=== PATIENT | male | born 1930 ===

== ENCOUNTER 2016-05-23 18:24 | Emergency (ER) | payer MEDICARE ==
[2016-05-23 18:24] VITALS: BMI 25.8
[2016-05-23 19:30] LABS: BASO % 0.3 % (0.0-2.0); EOS # 1.2 K/uL (0.0-0.7); EOS % 22.1 % (0.0-4.0); LYMPH # 1.4 K/uL (1.0-4.3); LYMPH % 25.9 % (20.0-40.0); MEAN CELL VOLUME 101.1 fl (80.0-94.0); MEAN CORPUSCULAR HEMOGLOBIN 32.7 pg (27.0-31.0); MEAN CORPUSCULAR HGB CONC 32.4 g/dL (33.0-37.0); MEAN PLATELET VOLUME 8.1 fl (7.2-11.7); MONO # 0.3 K/uL (0.0-0.8); MONO % 6.1 % (0.0-10.0); NEUT # 2.4 K/uL (1.8-7.0); NEUT % 45.6 % (50.0-75.0); NRBC % 0.1 % (0.0-0.0); PLATELET COUNT 147 K/uL (130-400); RED CELL DISTRIBUTION WIDTH 14.5 % (11.5-14.5); WHITE BLOOD COUNT 5.3 K/uL (4.8-10.8)
--- NOTE | 2016-05-23 19:33 | ED PDOC ---
HPI: Altered Mental Status Time Seen by Provider: 05/23/16 19:04 Chief Complaint (Nursing): Altered Mental Status Chief Complaint (Provider): altered mental status History Per: EMS, Family (son) History/Exam Limitations: Clinical Condition Onset Of Symptoms: <3 Hours Current Symptoms Are (Timing): Still Present Associated Symptoms: denies: Fever, Chills, Chest Pain, Headache, Other ( extremity pain) Additional Complaint(s): 85 year old male with a pertinent medical history of dementia brought into ED by EMS because he was found wandering on the streets just prior to arrival. His son reports that his father was out getting groceries, but he was taking longer than expected and doesn't know why EMS took him to the hospital, but thinks it' s because his father was stumbling. Patient denies having any medical complaints including chest pain, headache, shortness of breath, and extremity pain. He also says that he remembers everything. PMD: Patient does not recall. NIHSS Stroke Scale - Date/Time Evaluation Performed Date Performed: 05/23/16 Time Performed: 19:15 - How Severe is the Stroke Level of Consciousness: 0=Alert LOC to Questions: 0=Both comments correct LOC to commands: 0=Obeys both correctly Best Gaze: 0=Normal Visual: 0=No visual loss Facial: 0=Normal Motor Arm - Right: 0=No drift Motor Leg - Left: 0=No drift Motor Leg - Right: 0=No drift Limb Ataxia: 0=Absent Sensory: 0=Normal Best Language: 0=No aphasia Dysarthia: 0=Normal articulation Extinction & Inattention (Neglect): 0=Normal, no object Past Medical History Reviewed: Historical Data, Nursing Documentation, Vital Signs Vital Signs: Last Vital Signs Temp 97.0 F L 05/23/16 18:27 Pulse 77 05/23/16 18:27 Resp 16 05/23/16 18:27 BP 159/93 H 05/23/16 18:27 Pulse Ox 99 05/23/16 18:27 - Medical History PMH: Dementia Denies: Alzheimer's Disease, Anemia, Anxiety, Arthritis, Asthma, Atrial Fibrillation, Bipolar Disorder, Bronchitis, CAD, Cardia Arrhythmia, CHF, COPD, Crohn's Disease, Depression, Diabetes, Diverticulitis, Emphysema, Fractures, Gastritis, Gall Bladder Disease, HIV, HTN, Hypercholesterolemia, Hyperthyroidism , Hypothyroidism, Kidney Stones, Migraine, Mitral Valve Prolapse, Multiple Sclerosis, Osteoporosis, Pancreatitis, Paranoia, Parkinson's Disease, Peripheral Edema, Pneumonia, Post Traumatic Stress Disorder, Pulmonary Embolism , Chronic Kidney Disease, Rheumatoid Arthritis, Schizophrenia, Seizures, Sickle Cell Disease, Sexually Transmitted Disease, Sleep Apnea, TIA - Surgical History Surgical History: Denies: Appendectomy, CABG, Carotid Endarterectomy, Cholecystectomy, Coronary Stent, Pacemaker, Tonsillectomy - Family History Family History: States: Unknown Family Hx - Social History Alcohol: None - Home Medications Home Medications: Ambulatory Orders Medication Instructions Recorded Memantine [Namenda] 10 mg PO DAILY 12/05/15 Polyethylene Glycol 3350 [Miralax] 17 gm PO DAILY PRN 12/05/15 Aspirin [Ecotrin] 81 mg PO DAILY #0 tabec 12/06/15 - Allergies Allergies/Adverse Reactions: Allergies Allergy/AdvReac Type Severity Reaction Status Date / Time No Known Allergies Allergy Verified 05/23/16 18:27 Review of Systems Review Of Systems: ROS cannot be obtained secondary to pt's inabilty to answer questions. (due to patient's AMS) Physical Exam - Reviewed Nursing Documentation Reviewed: Yes Vital Signs Reviewed: Yes - Physical Exam Appears: Positive for: Well, Non-toxic, No Acute Distress Head Exam: Positive for: ATRAUMATIC, NORMOCEPHALIC Skin: Positive for: Warm, Dry, Pallor Eye Exam: Positive for: Normal appearance ENT: Positive for: Normal ENT Inspection Cardiovascular/Chest: Positive for: Regular Rate, Rhythm, Chest Non Tender Respiratory: Positive for: Normal Breath Sounds. Negative for: Respiratory Distress Neurologic/Psych: Positive for: Alert, Oriented (x2) - Laboratory Results Result Diagrams: 05/23/16 19:27 05/23/16 19:27 - ECG O2 Sat by Pulse Oximetry: 99 (RA) Pulse Ox Interpretation: Normal Medical Decision Making Medical Decision Makin:04 Initial impression: 85 year old male with dementia Initial plan: * CT head w/o contrast * BMP * CBC * XRay portable chest * urinalysis * reevaluation 1030PM: Pt. doing well, accompanied by son, will d/c home. CT neg. Scribe Attestation: Documented by Tete Berumen, acting as a scribe for Wilmer Cat MD. Provider Scribe Attestation: All medical record entries made by the Scribe were at my direction and personally dictated by me. I have reviewed the chart and agree that the record accurately reflects my personal performance of the history, physical exam, medical decision making, and the department course for this patient. I have also personally directed, reviewed, and agree with the discharge instructions and disposition. Disposition - Clinical Impression Clinical Impression: Dementia - Disposition Referrals: Saulo Arshad MD [Family Provider] - Disposition: Routine/Home Disposition Time: 22:30 Condition: STABLE Instructions: Dementia (ED) Print Language: [place]
[2016-05-23 19:40] LABS: BLOOD UREA NITROGEN 23 mg/dl (9-20); CALCIUM 8.9 mg/dL (8.4-10.2); CARBON DIOXIDE 29 mmol/L (22-30); CHLORIDE 102 mmol/L (98-107); GFR AFRICAN-AMERICAN > 60; GLUCOSE,RANDOM 96 mg/dL (75-110); POTASSIUM 4.2 MMOL/L (3.6-5.0); SODIUM 137 mmol/l (132-148)
[2016-05-23 20:38] LABS: RBC URINE 14 /hpf (0-3); URINE BACTERIA FEW (<OCC); URINE BILIRUBIN NEGATIVE (NEGATIVE); URINE BLOOD MODERATE (NEGATIVE); URINE COLOR YELLOW (YELLOW); URINE GLUCOSE (UA) NEG (Normal); URINE KETONE NEGATIVE (NEGATIVE); URINE LEUKOCYTE ESTERASE NEG Leu/uL (Negative); URINE PROTEIN NEGATIVE (NEGATIVE); URINE UROBILINOGEN 0.2-1.0 mg/dL (0.2-1.0); WBC URINE 1 /hpf (0-5)
[2016-05-23 21:28] LABS: EOSINOPHIL 19 % (0-7); NEUTROPHIL 44 % (42-75); TOTAL CELLS COUNTED 100
[2016-05-23 21:34] VITALS: BP 140/77; PULSE 58; RESP 18; TEMP 97.9
[2016-05-23 23:28] VITALS: O2SAT 99
--- NOTE | 2016-05-24 08:51 | CT ---
PROCEDURE: CT HEAD WITHOUT CONTRAST. HISTORY: found wandering outside home COMPARISON: None available. TECHNIQUE: Axial computed tomography images were obtained through the head/brain without intravenous contrast. Radiation dose: Total exam DLP = 893.40 mGy-cm. FINDINGS: HEMORRHAGE: No intracranial hemorrhage. BRAIN: No mass effect or edema. Moderate age-appropriate diffuse atrophy. Moderate periventricular white matter lucency with patchy and confluent deep and subcortical white matter lucency, consistent with age-related microvascular ischemic change. No evidence of acute infarct. VENTRICLES: Unremarkable. No hydrocephalus. CALVARIUM: Unremarkable. PARANASAL SINUSES: Unremarkable as visualized. No significant inflammatory changes. MASTOID AIR CELLS: Unremarkable as visualized. No inflammatory changes. OTHER FINDINGS: None. IMPRESSION: No intracranial mass, hemorrhage or evidence of acute infarct. Age related atrophy and chronic white matter ischemic change. Preliminary interpretation of this examination was reported by [facility] at 9:43 p.m. on 05/23/2016. There is concurrence of this report with the preliminary interpretation.
--- NOTE | 2016-05-24 13:20 | RAD ---
HISTORY: r/o PNA COMPARISON: I mildly are all HIDA age she organic single live fairly radiata upper lid edema and thenar atrophy extending at 9 well from [place] [address] pachymeningeal bowel upper No prior. FINDINGS: LUNGS: The lungs are well inflated and clear. PLEURA: No significant pleural effusion identified, no pneumothorax apparent. CARDIOVASCULAR: The heart is normal in size. Atherosclerotic aortic arch calcifications are present. OSSEOUS STRUCTURES: No significant abnormalities. VISUALIZED UPPER ABDOMEN: Normal. OTHER FINDINGS: None. IMPRESSION: No active pulmonary disease.
== END 2016-05-23 21:50 | disposition home or self-care (01) ==
LOC: H.ER 18:24
DX: F03.90 Unspecified dementia, unspecified severity, without behavioral disturbance, psychotic disturbance, mood disturbance, and anxiety (principal)

== ENCOUNTER 2016-07-23 13:22 | Emergency (ER) | payer MEDICARE ==
[2016-07-23 13:22] VITALS: BMI 25.8
[2016-07-23 13:33] VITALS: BP 145/92; PULSE 76; RESP 16; TEMP 97.8; O2SAT 99
[2016-07-23] MEDS ORDERED: Iohexol 240 (50 ml) PO ONE (13:53)
[2016-07-23] MEDS ORDERED: Iohexol 240 (50 ml) ONE (13:54)
[2016-07-23 14:37] LABS: BASO % 0.2 % (0.0-2.0); EOS % 11.9 % (0.0-4.0); HEMATOCRIT 37.7 % (35.0-51.0); LYMPH # 0.3 K/uL (1.0-4.3); LYMPH % 3.1 % (20.0-40.0); MEAN CELL VOLUME 100.4 fl (80.0-94.0); MEAN CORPUSCULAR HEMOGLOBIN 33.7 pg (27.0-31.0); MEAN CORPUSCULAR HGB CONC 33.6 g/dL (33.0-37.0); MEAN PLATELET VOLUME 8.3 fl (7.2-11.7); MONO # 0.2 K/uL (0.0-0.8); MONO % 2.7 % (0.0-10.0); NEUT # 6.7 K/uL (1.8-7.0); NEUT % 82.1 % (50.0-75.0); NRBC % 0.1 % (0.0-0.0); PLATELET COUNT 153 K/uL (130-400); RED CELL DISTRIBUTION WIDTH 14.1 % (11.5-14.5); WHITE BLOOD COUNT 8.1 K/uL (4.8-10.8)
[2016-07-23 14:42] LABS: ALB/GLOB RATIO 1.3 (1.0-2.1); ALKALINE PHOSPHATASE 69 U/L (38-126); ALT/SGPT 27 U/L (21-72); AMYLASE 157 U/L (30-110); AST/SGOT 36 U/L (17-59); BILIRUBIN,TOTAL 0.6 mg/dl (0.2-1.3); BLOOD UREA NITROGEN 27 mg/dl (9-20); CALCIUM 8.9 mg/dL (8.4-10.2); CARBON DIOXIDE 28 mmol/L (22-30); CHLORIDE 101 mmol/L (98-107); GFR AFRICAN-AMERICAN > 60; GLUCOSE,RANDOM 98 mg/dL (75-110); LIPASE 208 U/L (23-300); SODIUM 138 mmol/l (132-148); TOTAL PROTEIN 7.9 G/DL (6.3-8.2)
[2016-07-23 15:44] LABS: EOSINOPHIL 8 % (0-7); NEUTROPHIL 81 % (42-75); TOTAL CELLS COUNTED 100
[2016-07-23 16:26] LABS: RBC URINE 15 /hpf (0-3); URINE BACTERIA RARE (<OCC); URINE BILIRUBIN NEGATIVE (NEGATIVE); URINE BLOOD MODERATE (NEGATIVE); URINE COLOR YELLOW (YELLOW); URINE GLUCOSE (UA) NEG (Normal); URINE KETONE TRACE mg/dL (NEGATIVE); URINE LEUKOCYTE ESTERASE NEG Leu/uL (Negative); URINE PROTEIN NEGATIVE (NEGATIVE); URINE UROBILINOGEN 0.2-1.0 mg/dL (0.2-1.0); WBC URINE 1 /hpf (0-5)
[2016-07-23] MEDS ORDERED: Iohexol 300 100 ML IJ ONE (17:11)
[2016-07-23] MEDS ORDERED: Sodium Chloride 0.9% 50 ML IV ONE (17:11)
--- NOTE | 2016-07-23 18:19 | CT ---
PROCEDURE: CT Abdomen and Pelvis with oral and IV contrast. HISTORY: diffuse abd pain r/o sbo COMPARISON: None available. TECHNIQUE: Contiguous axial images of the abdomen and pelvis. Oral and IV contrast was administered. Coronal and Sagittal reformats generated. Contrast dose: 90 cc Omnipaque 300 Radiation dose: Total exam DLP = 333.15 mGy-cm. This CT exam was performed using one or more of the following dose reduction techniques: Automated exposure control, adjustment of the mA and/or kV according to patient size, and/or use of iterative reconstruction technique. FINDINGS: LOWER THORAX: No visible consolidation, pleural effusion, or pneumothorax. Moderate-sized hiatal hernia. LIVER: Hypoattenuation of the liver compatible with hepatic steatosis. GALLBLADDER AND BILE DUCTS: Unremarkable. PANCREAS: Unremarkable. Move that SPLEEN: Unremarkable. ADRENALS: Unremarkable. KIDNEYS AND URETERS: The kidneys enhance symmetrically. No hydronephrosis or obstructing renal calculus. BLADDER: Thick-walled urinary bladder. REPRODUCTIVE: The prostate gland measures approximately 2.7 x 4.0 cm and contains coarse calcifications. APPENDIX: The appendix appears within normal limits of caliber. No secondary signs of acute appendicitis. BOWEL: The stomach is nondistended. The bowel loops appear within normal limits of caliber without evidence of intestinal obstruction. Diverticulosis without CT evidence of acute diverticulitis. PERITONEUM: No significant free fluid. No definite free air. LYMPH NODES: No bulky lymphadenopathy identified. VASCULATURE: No aortic aneurysm. BONES: Osseous demineralization. Degenerative changes. OTHER FINDINGS: Small right greater than left inguinal hernias which contain fluid and fat on the right and fat on the left. IMPRESSION: Moderate-sized hiatal hernia. Small right greater than left inguinal hernias which contain fluid and fat on the right and fat on the left. Hepatic steatosis. Diverticulosis without CT evidence of acute diverticulitis. Thick-walled urinary bladder. Recommend correlation with urinalysis. Additional incidental findings as above.
--- NOTE | 2016-07-23 18:38 | ED PDOC ---
- Laboratory Results Result Diagrams: 07/23/16 14:27 07/23/16 14:27 - ECG O2 Sat by Pulse Oximetry: 99 - Progress ED Course And Treament: [address] Medel. Pt with abd pain pending CT. Labs unremarkable Accession No. : [id number] Patient Name / ID : ALYSSA HIGGINBOTHAM / [id number] Exam Date : 07/23/2016 17:44:09 ( Approved ) Study Comment : Sex / Age : M / 86Y Creator : Lizet Carreno MD Dictator : Lizet Carreno MD Turntable Engineer : Swim Coach : Lizet Carreno MD Approver2 : Report Date : 07/23/2016 18:18:13 My Comment : PROCEDURE: CT Abdomen and Pelvis with oral and IV contrast. HISTORY: diffuse abd pain r/o sbo COMPARISON: None available. TECHNIQUE: Contiguous axial images of the abdomen and pelvis. Oral and IV contrast was administered. Coronal and Sagittal reformats generated. Contrast dose: 90 cc Omnipaque 300 Radiation dose: Total exam DLP = 333.15 mGy-cm. This CT exam was performed using one or more of the following dose reduction techniques: Automated exposure control, adjustment of the mA and/or kV according to patient size, and/or use of iterative reconstruction technique. FINDINGS: LOWER THORAX: No visible consolidation, pleural effusion, or pneumothorax. Moderate-sized hiatal hernia. LIVER: Hypoattenuation of the liver compatible with hepatic steatosis. GALLBLADDER AND BILE DUCTS: Unremarkable. PANCREAS: Unremarkable. Move that SPLEEN: Unremarkable. ADRENALS: Unremarkable. KIDNEYS AND URETERS: The kidneys enhance symmetrically. No hydronephrosis or obstructing renal calculus. BLADDER: Thick-walled urinary bladder. REPRODUCTIVE: The prostate gland measures approximately 2.7 x 4.0 cm and contains coarse calcifications. APPENDIX: The appendix appears within normal limits of caliber. No secondary signs of acute appendicitis. BOWEL: The stomach is nondistended. The bowel loops appear within normal limits of caliber without evidence of intestinal obstruction. Diverticulosis without CT evidence of acute diverticulitis. PERITONEUM: No significant free fluid. No definite free air. LYMPH NODES: No bulky lymphadenopathy identified. VASCULATURE: No aortic aneurysm. BONES: Osseous demineralization. Degenerative changes. OTHER FINDINGS: Small right greater than left inguinal hernias which contain fluid and fat on the right and fat on the left. IMPRESSION: Moderate-sized hiatal hernia. Small right greater than left inguinal hernias which contain fluid and fat on the right and fat on the left. Hepatic steatosis. Diverticulosis without CT evidence of acute diverticulitis. Thick-walled urinary bladder. Recommend correlation with urinalysis. Additional incidental findings as above. Condition: Re-examined, Improved Disposition Counseled Patient/Family Regarding: Studies Performed, Diagnosis, Need For Followup - Clinical Impression Clinical Impression: Abdominal pain, Constipation, Hiatal hernia - POA Present On Arrival: None - Disposition Referrals: [facility] [Outside] Brody Bey MD, PhD [Staff Provider] - 07/24/16 Disposition: Routine/Home Disposition Time: 18:00 Condition: IMPROVED Instructions: Acute Abdominal Pain (ED), Constipation (ED) Print Language: BRAZILIAN
== END 2016-07-23 18:54 | disposition home or self-care (01) ==
LOC: H.ER 13:22
DX: K44.9 Diaphragmatic hernia without obstruction or gangrene (principal); K59.00 Constipation, unspecified; R10.9 Unspecified abdominal pain
CPT/HCPCS: 74177; 80053; 81003; 82150; 83690; 85025; 96374; 99283; J2405; Q9966; Q9967

== ENCOUNTER 2016-08-11 08:40 | Inpatient (IN) | payer MEDICARE ==
[2016-08-11 08:48] VITALS: BMI 19.5
[2016-08-11] MEDS ORDERED: Sodium Chloride 0.9% 500 ML IV STA (09:31)
--- NOTE | 2016-08-11 09:39 | ED PDOC ---
HPI: Chest Pain Time Seen by Provider: 08/11/16 08:47 Chief Complaint (Nursing): Chest Pain Chief Complaint (Provider): Chest Pain History Per: Patient History/Exam Limitations: no limitations Onset/Duration Of Symptoms: Days Current Symptoms Are (Timing): Still Present Severity: Mild Quality: "Pain" Associated Symptoms: Dyspnea Modifying Factors: None Exacerbating Factors: None Alleviating Factors: None Additional Complaint(s): Patient is a 86 year old male with a history of dementia, presents to ED accompanied by daughter for evaluation of abdominal pain, intermittent since yesterday. As per daughter, no BM for 2 days supposed to take Lactulose but due to worsening cramps refuses to take medication. Patient in ED also reports mid- sternal chest pain with occasional SOB intermittent for 2 days as well. Denies palpations, radiation of pain, nausea, vomiting or dizziness. No numbness, tingles, weakness. Past Medical History Reviewed: Historical Data, Nursing Documentation, Vital Signs Vital Signs: Last Vital Signs Temp 98.0 F 08/11/16 08:47 Pulse 65 08/11/16 08:47 Resp 18 08/11/16 08:47 BP 138/65 08/11/16 08:47 Pulse Ox 100 08/11/16 09:43 - Medical History PMH: Dementia Other PMH: constipation - Surgical History Surgical History: No Surg Hx - Family History Family History: States: Unknown Family Hx - Living Arrangements Living Arrangements: With Family - Social History Current smoker - smoking cessation education provided: No Alcohol: None Drugs: Denies - Home Medications Home Medications: Ambulatory Orders Medication Instructions Recorded Memantine [Namenda] 10 mg PO DAILY 12/05/15 Lactulose [Constulose] 10 ml PO TID 08/11/16 - Allergies Allergies/Adverse Reactions: Allergies Allergy/AdvReac Type Severity Reaction Status Date / Time No Known Allergies Allergy Verified 07/23/16 13:29 Review of Systems ROS Statement: Except As Marked, All Systems Reviewed And Found Negative Constitutional: Negative for: Fever, Weakness Cardiovascular: Positive for: Chest Pain. Negative for: Palpitations, Light Headedness Respiratory: Positive for: Shortness of Breath (occasional) Gastrointestinal: Positive for: Abdominal Pain, Constipation. Negative for: Nausea, Vomiting, Diarrhea Genitourinary Male: Negative for: Dysuria, Hematuria Musculoskeletal: Negative for: Back Pain Neurological: Negative for: Weakness, Numbness, Dizziness Physical Exam - Reviewed Nursing Documentation Reviewed: Yes Vital Signs Reviewed: Yes - Physical Exam Appears: Positive for: Non-toxic, No Acute Distress Skin: Positive for: Normal Color, Warm Eye Exam: Positive for: Normal appearance, PERRL ENT: Positive for: Normal ENT Inspection. Negative for: Nasal Congestion, Pharyngeal Erythema, Tonsillar Exudate Neck: Positive for: Normal Cardiovascular/Chest: Positive for: Regular Rate, Rhythm, Chest Non Tender. Negative for: Edema, Murmur Respiratory: Positive for: Normal Breath Sounds. Negative for: Respiratory Distress Gastrointestinal/Abdominal: Positive for: Normal Exam, Soft. Negative for: Tenderness Back: Positive for: Normal Inspection. Negative for: L CVA Tenderness, R CVA Tenderness Extremity: Positive for: Normal ROM. Negative for: Pedal Edema Neurologic/Psych: Positive for: Alert, Oriented (baseline). Negative for: Motor /Sensory Deficits - Laboratory Results Result Diagrams: 08/11/16 09:45 08/11/16 10:15 Interpretation Of Abn Labs: 22 bun - ECG ECG: Positive for: Interpreted By Me, Viewed By Me ECG Rhythm: Positive for: Normal QRS, Normal ST Segment, Sinus Rhythm O2 Sat by Pulse Oximetry: 100 (RA) Pulse Ox Interpretation: Normal - Radiology X-Ray: Read By Radiologist X-Ray Interpretation: No Acute Disease - Progress ED Course And Treament: 1208: Stable. AAOx3. Pain controlled. Will need admit for further eval. Spoke with [facility] resident. Will admit. Medical Decision Making Medical Decision Making: Time: 924 Initial impression: Chest pain and abdominal pain Initial plan: -- EKG -- BnP -- CMP -- Troponin -- CBC -- PT/PTT -- Obs Series -- ASA and NSF Scribe Attestation: Documented by Yazmin Brian acting as a scribe for Juanjo Blanc MD. Scribe Attestation: All medical record entries made by the Scribe were at my direction and personally dictated by me. I have reviewed the chart and agree that the record accurately reflects my personal performance of the history, physical exam, medical decision making, and the department course for this patient. I have also personally directed, reviewed, and agree with the discharge instructions and disposition. Disposition - Clinical Impression Clinical Impression: Acute chest pain, Abdominal pain, Dehydration - Patient ED Disposition Is Patient to be Admitted: Yes Counseled Patient/Family Regarding: Studies Performed, Diagnosis - Disposition Disposition Time: 12:09 Condition: FAIR - Pt Status Changed To: Hospital Disposition Of: Observation - POA Present On Arrival: None
[2016-08-11 09:59] LABS: BASO % 0.4 % (0.0-2.0); EOS # 1.1 K/uL (0.0-0.7); EOS % 21.2 % (0.0-4.0); HEMATOCRIT 35.6 % (35.0-51.0); LYMPH # 1.1 K/uL (1.0-4.3); LYMPH % 21.1 % (20.0-40.0); MEAN CELL VOLUME 100.2 fl (80.0-94.0); MEAN CORPUSCULAR HEMOGLOBIN 33.2 pg (27.0-31.0); MEAN CORPUSCULAR HGB CONC 33.1 g/dL (33.0-37.0); MEAN PLATELET VOLUME 8.9 fl (7.2-11.7); MONO # 0.3 K/uL (0.0-0.8); MONO % 5.8 % (0.0-10.0); NEUT # 2.8 K/uL (1.8-7.0); NEUT % 51.5 % (50.0-75.0); NRBC % 0.1 % (0.0-0.0); PLATELET COUNT 159 K/uL (130-400); RED CELL DISTRIBUTION WIDTH 14.2 % (11.5-14.5); WHITE BLOOD COUNT 5.4 K/uL (4.8-10.8)
[2016-08-11 10:32] LABS: ALB/GLOB RATIO 1.2 (1.0-2.1); ALKALINE PHOSPHATASE 67 U/L (38-126); ALT/SGPT 31 U/L (21-72); AST/SGOT 37 U/L (17-59); BILIRUBIN,TOTAL 0.6 mg/dl (0.2-1.3); BLOOD UREA NITROGEN 22 mg/dl (9-20); CARBON DIOXIDE 31 mmol/L (22-30); CHLORIDE 103 mmol/L (98-107); GFR AFRICAN-AMERICAN > 60; GLUCOSE,RANDOM 90 mg/dL (75-110); SODIUM 140 mmol/l (132-148); TOTAL PROTEIN 7.4 G/DL (6.3-8.2)
[2016-08-11 10:45] LABS: PARTIAL THROMBOPLASTIN TIME 32.7 Seconds (25.6-37.1)
[2016-08-11 11:22] LABS: EOSINOPHIL 21 % (0-7); NEUTROPHIL 50 % (42-75); TOTAL CELLS COUNTED 100
--- NOTE | 2016-08-11 12:07 | RAD ---
PROCEDURE: Radiographs of the chest and abdomen (obstructive series) HISTORY: constipation COMPARISON: No prior. TECHNIQUE: AP radiograph of the chest, with upright and supine radiographs of the abdomen. FINDINGS: CHEST: Lungs: Clear. Cardiovascular: Normal size heart. No pulmonary vascular congestion. Pleura: No pleural fluid. No pneumothorax. Other findings: None. ABDOMEN AND PELVIS: Bowel: Unremarkable bowel gas pattern. No evidence of mechanical obstruction. Free air: None. Bones: Unremarkable. Other findings: None. IMPRESSION: Unremarkable radiographs of chest and abdomen. No evidence of mechanical bowel obstruction.
--- NOTE | 2016-08-11 12:52 | CP.PCM.HP ---
History of Present Illness - History of Present Illness History of Present Illness: 86yo M with PMHx dementia admitted for chest pain. chest pain started last night at unspecified time after putting on a topical anesthetic patch for back pain. left sided chest pain x2 hours in duration, sharp, no radiation. Currently no chest pain. Denies exercise intolerance; able to walk 5 flight of stair or >20 blocks with no chest pain or SOB on exertion. Denies h/o cardiac disease, FHx cardiac disease. Denies SHx of CABG or stent. Recently stopped lactulose d/t side effect. ECHO 12/06/15: LVEF 55-60%, mild mitral annular calcification PMHx: Age related dementia, constipation PSHx: Rotator cuff repair, hand surgery FMHx: Not contributory Social: Denies smoking, EtOH, drugs Allergies: NKDA PMD: Dr. Dodson ED Course Aspirin 325mg PO x1 EKG NSR XR abdomen no obstruction Troponin neg proBNP neg Present on Admission - Present on Admission Any Indicators Present on Admission: No Review of Systems - Review of Systems All systems: reviewed and no additional remarkable complaints except - Cardiovascular Cardiovascular: Chest Pain Past Patient History - Past Medical History & Family History Past Medical History?: Yes - Past Social History Alcohol: None Drugs: Denies - CARDIAC Hx Atrial Fibrillation: No Hx Cardia Arrhythmia: No Hx Congestive Heart Failure: No Hx Hypercholesterolemia: No Hx Hypertension: No Hx Mitral Valve Prolapse: No Hx Pacemaker: No Hx Peripheral Edema: No - PULMONARY Hx Asthma: No Hx Bronchitis: No Hx Chronic Obstructive Pulmonary Disease (COPD): No Hx Emphysema: No Hx Pneumonia: No Hx Pulmonary Embolism: No Hx Sleep Apnea: No - NEUROLOGICAL Hx Dementia: Yes - HEENT Hx HEENT Problems: No Hx Blind: No Hx Cataracts: No Hx Deafness: No Hx Difficulty Chewing: No Hx Epistaxis: No Hx Glaucoma: No Hx Macular Degeneration: No - RENAL Hx Chronic Kidney Disease: No Hx Kidney Stones: No - ENDOCRINE/METABOLIC Hx Hyperthyroidism: No Hx Hypothyroidism: No - HEMATOLOGICAL/ONCOLOGICAL Hx Anemia: No Hx Human Immunodeficiency Virus (HIV): No Hx Sickle Cell Disease: No - INTEGUMENTARY Hx Dermatological Problems: No Hx Basil Cell: No Hx Fajardo: No Hx Cellulitis: No Hx Eczema: No Hx Melanoma: No Hx Psoriasis: No Hx Squamous Cell: No - MUSCULOSKELETAL/RHEUMATOLOGICAL Hx Arthritis: No Hx Fractures: No Hx Osteoporosis: No Hx Rheumatoid Arthritis: No - GASTROINTESTINAL Hx Crohn's Disease: No Hx Diverticulitis: No Hx Gall Bladder Disease: No Hx Gastritis: No Hx Pancreatitis: No - GENITOURINARY/GYNECOLOGICAL Hx Sexually Transmitted Disorders: No - PSYCHIATRIC Hx Anxiety: No Hx Bipolar Disorder: No Hx Depression: No Hx Paranoia: No Hx Post Traumatic Stress Disorder: No Hx Schizophrenia: No - SURGICAL HISTORY Hx Appendectomy: No Hx Carotid Endarterectomy: No Hx Cholecystectomy: No Hx Coronary Artery Bypass Graft: No Hx Coronary Stent: No Hx Tonsillectomy: No - ANESTHESIA Hx Anesthesia: No Meds Allergies/Adverse Reactions: Allergies Allergy/AdvReac Type Severity Reaction Status Date / Time No Known Allergies Allergy Verified 07/23/16 13:29 Physical Exam - Constitutional Appears: Non-toxic, No Acute Distress - Head Exam Head Exam: ATRAUMATIC, NORMAL INSPECTION - Eye Exam Eye Exam: Normal appearance. absent: Scleral icterus - Neck Exam Neck exam: Positive for: Full Rom, Normal Inspection - Respiratory Exam Respiratory Exam: Clear to Auscultation Bilateral - Cardiovascular Exam Cardiovascular Exam: REGULAR RHYTHM - GI/Abdominal Exam GI & Abdominal Exam: Soft. absent: Distended, Tenderness - Extremities Exam Extremities exam: Positive for: normal inspection. Negative for: pedal edema, tenderness - Back Exam Back exam: NORMAL INSPECTION - Neurological Exam Neurological exam: Alert, Oriented x3 - Skin Skin Exam: Dry, Warm Results - Vital Signs Recent Vital Signs: Last Vital Signs Temp 97.4 F L 08/11/16 12:38 Pulse 55 L 08/11/16 12:38 Resp 16 08/11/16 12:38 BP 142/82 08/11/16 12:38 Pulse Ox 100 08/11/16 12:38 - Labs Result Diagrams: 08/11/16 09:45 08/11/16 10:15 Assessment & Plan - Assessment and Plan (Free Text) Assessment: 86yo M with PMHx dementia admitted for chest pain. chest pain -ECHO 12/06/15: LVEF 55-60%, mild mitral annular calcification -Aspirin 81mg -EKG NSR -Troponin neg -nitro SL -tele -HgbA1c -lipid panel constipation -XR abdomen no obstruction -hold lactulose -sennaS DVT ppx -lovenox Decision To Admit - Pt Status Changed To: Hospital Disposition Of: Observation - . Bed Request Type: Telemetry Admitting Physician: Saulo Dodson
[2016-08-11] MEDS: Sodium Chloride 0.9% 1,000 ML IV SCH (15:39)
[2016-08-11] MEDS ORDERED: Docusate-Senna 50 mg-8.6 mg Tab PO SCH (22:00)
[2016-08-12 05:01] VITALS: RESP 18
[2016-08-12] MEDS: Sodium Chloride 0.9% 1,000 ML IV SCH (06:20)
[2016-08-12 08:16] VITALS: BP 159/74; PULSE 61; TEMP 97.4; O2SAT 99
[2016-08-12 08:54] LABS: BASO % 0.4 % (0.0-2.0); EOS # 1.7 K/uL (0.0-0.7); HEMATOCRIT 36.1 % (35.0-51.0); LYMPH % 28.3 % (20.0-40.0); MEAN CELL VOLUME 99.3 fl (80.0-94.0); MEAN CORPUSCULAR HEMOGLOBIN 33.4 pg (27.0-31.0); MEAN CORPUSCULAR HGB CONC 33.6 g/dL (33.0-37.0); MEAN PLATELET VOLUME 8.6 fl (7.2-11.7); MONO # 0.3 K/uL (0.0-0.8); MONO % 4.9 % (0.0-10.0); NEUT # 2.9 K/uL (1.8-7.0); NEUT % 41.4 % (50.0-75.0); NRBC % 0.1 % (0.0-0.0); PLATELET COUNT 166 K/uL (130-400); RED CELL DISTRIBUTION WIDTH 13.9 % (11.5-14.5); WHITE BLOOD COUNT 6.9 K/uL (4.8-10.8)
[2016-08-12 08:57] LABS: BLOOD UREA NITROGEN 17 mg/dl (9-20); CALCIUM 8.8 mg/dL (8.4-10.2); CARBON DIOXIDE 27 mmol/L (22-30); CHLORIDE 104 mmol/L (98-107); CHOLESTEROL 192 mg/dL (0-199); GFR AFRICAN-AMERICAN > 60; GLUCOSE,RANDOM 83 mg/dL (75-110); SODIUM 139 mmol/l (132-148)
[2016-08-12] MEDS ORDERED: Enoxaparin 40 mg Syringe SC SCH (09:00)
[2016-08-12] MEDS ORDERED: Pantoprazole 20 mg EC Tab PO SCH (09:00)
--- NOTE | 2016-08-12 10:15 | CP.PCM.DIS ---
Provider - Provider Date of Admission: 08/11/16 12:09 Attending physician: Saulo Arshad MD Time Spent in preparation of Discharge (in minutes): 45 Diagnosis - Discharge Diagnosis (1) Acute chest pain Status: Acute (2) Abdominal pain Status: Acute (3) Constipation Status: Acute (4) Dementia Status: Acute Hospital Course - Lab Results Lab Results: Most Recent Lab Values WBC 6.9 K/uL (4.8-10.8) 08/12/16 06:30 RBC 3.64 Mil/uL (4.40-5.90) L 08/12/16 06:30 Hgb 12.1 g/dL (12.0-18.0) 08/12/16 06:30 Hct 36.1 % (35.0-51.0) 08/12/16 06:30 MCV 99.3 fl (80.0-94.0) H 08/12/16 06:30 MCH 33.4 pg (27.0-31.0) H 08/12/16 06:30 MCHC 33.6 g/dL (33.0-37.0) 08/12/16 06:30 RDW 13.9 % (11.5-14.5) 08/12/16 06:30 Plt Count 166 K/uL (130-400) 08/12/16 06:30 MPV 8.6 fl (7.2-11.7) 08/12/16 06:30 Neut % (Auto) 41.4 % (50.0-75.0) L 08/12/16 06:30 Lymph % (Auto) 28.3 % (20.0-40.0) 08/12/16 06:30 [place] % (Auto) 4.9 % (0.0-10.0) 08/12/16 06:30 Eos % (Auto) 25.0 % (0.0-4.0) H 08/12/16 06:30 Baso % (Auto) 0.4 % (0.0-2.0) 08/12/16 06:30 Neut # 2.9 K/uL (1.8-7.0) 08/12/16 06:30 Lymph # 2.0 K/uL (1.0-4.3) 08/12/16 06:30 [place] # 0.3 K/uL (0.0-0.8) 08/12/16 06:30 Eos # 1.7 K/uL (0.0-0.7) H 08/12/16 06:30 Baso # 0.0 K/uL (0.0-0.2) 08/12/16 06:30 Neutrophils % (Manual) 50 % (42-75) 08/11/16 09:45 Lymphocytes % (Manual) 23 % (20-50) 08/11/16 09:45 Monocytes % (Manual) 6 % (0-10) 08/11/16 09:45 Eosinophils % (Manual) 21 % (0-7) H 08/11/16 09:45 Platelet Estimate Normal (NORMAL) 08/11/16 09:45 Hypochromasia (manual) Slight 08/11/16 09:45 Macrocytosis (manual) Slight 08/11/16 09:45 PT 12.5 Seconds (9.8-13.1) 08/11/16 09:45 INR 1.1 (0.9-1.2) 08/11/16 09:45 APTT 32.7 Seconds (25.6-37.1) 08/11/16 09:45 Sodium 139 mmol/l (132-148) 08/12/16 06:30 Potassium 4.0 MMOL/L (3.6-5.0) 08/12/16 06:30 Chloride 104 mmol/L (98-107) 08/12/16 06:30 Carbon Dioxide 27 mmol/L (22-30) 08/12/16 06:30 Anion Gap 13 (10-20) 08/12/16 06:30 BUN 17 mg/dl (9-20) 08/12/16 06:30 Creatinine 1.2 mg/dL (0.8-1.5) 08/12/16 06:30 Est GFR ( Amer) > 60 08/12/16 06:30 Est GFR (Non-Af Amer) 58 08/12/16 06:30 Random Glucose 83 mg/dL (75-110) 08/12/16 06:30 Calcium 8.8 mg/dL (8.4-10.2) 08/12/16 06:30 Total Bilirubin 0.6 mg/dl (0.2-1.3) 08/11/16 10:15 AST 37 U/L (17-59) 08/11/16 10:15 ALT 31 U/L (21-72) 08/11/16 10:15 Alkaline Phosphatase 67 U/L (38-126) 08/11/16 10:15 Troponin I 0.0160 ng/mL (0.00-0.120) 08/12/16 02:30 NT-Pro-B Natriuret Pep 299 pg/ml (0-900) 08/11/16 10:15 Total Protein 7.4 G/DL (6.3-8.2) 08/11/16 10:15 Albumin 4.1 g/dL (3.5-5.0) 08/11/16 10:15 Globulin 3.4 gm/dL (2.2-3.9) 08/11/16 10:15 Albumin/Globulin Ratio 1.2 (1.0-2.1) 08/11/16 10:15 Triglycerides 69 mg/DL (0-149) 08/12/16 06:30 Cholesterol 192 mg/dL (0-199) 08/12/16 06:30 LDL Cholesterol Direct 109 mg/dL (0-129) 08/12/16 06:30 HDL Cholesterol 56 MG/DL (30-70) 08/12/16 06:30 - Hospital Course Hospital Course: 86 yo M with PMHx dementia admitted for chest pain and abdominal pain. ACS was ruled out and patient's abdominal pain was resolved now. Per daughter stated she thinks patient was very constipated and he was stained for bowel movement and he probable had chest pain. Patient was seen and examined at bedside this morning. Patient is stable to discharge home today and follow up 's office next Saturday. Discharge Exam - Head Exam Head Exam: ATRAUMATIC, NORMAL INSPECTION - Eye Exam Eye Exam: EOMI, Normal appearance, PERRL Pupil Exam: NORMAL ACCOMODATION, PERRL - ENT Exam ENT Exam: Mucous Membranes Moist, Normal Exam - Neck Exam Neck exam: Normal Inspection - Respiratory Exam Respiratory Exam: Clear to PA & Lateral, NORMAL BREATHING PATTERN - Cardiovascular Exam Cardiovascular Exam: REGULAR RHYTHM, RRR - GI/Abdominal Exam GI & Abdominal Exam: Normal Bowel Sounds, Soft - Extremities Exam Extremities exam: full ROM, normal inspection - Back Exam Back exam: NORMAL INSPECTION - Neurological Exam Neurological exam: Alert, Normal Gait, Oriented x3 - Psychiatric Exam Psychiatric exam: Normal Affect, Normal Mood - Skin Skin Exam: Dry, Intact, Normal Color, Warm Discharge Plan - Follow Up Plan Condition: FAIR Disposition: HOME/ ROUTINE Additional Instructions: follow up on Saturday with 's office Referrals: Danis James MD [Staff Provider] -
[2016-08-12 13:12] LABS: EOSINOPHIL 28 % (0-7); NEUTROPHIL 41 % (42-75); TOTAL CELLS COUNTED 100
--- NOTE | 2016-08-12 14:45 | CARD ---
APPROVED REPORT EKG Measurement Heart [id number] <Conclusion> Normal sinus rhythm Possible Left atrial enlargement Incomplete right bundle branch block Borderline ECG
== END 2016-08-12 11:50 | disposition home or self-care (01) | DRG 313 ==
LOC: H.ER 08:40 → H.ERHOLD 12:09 → H.TEL 13:34
PROVIDERS: ADMIT Family Medicine; ATTEND Family Medicine
DX: R07.9 Chest pain, unspecified (principal); E86.0 Dehydration; F03.90 Unspecified dementia, unspecified severity, without behavioral disturbance, psychotic disturbance, mood disturbance, and anxiety; R10.9 Unspecified abdominal pain; K59.00 Constipation, unspecified

== ENCOUNTER 2017-01-26 12:50 | Emergency (ER) | payer MEDICARE ==
[2017-01-26 13:01] VITALS: BMI 22.4
--- NOTE | 2017-01-26 14:26 | ED PDOC ---
HPI: Male Pain Time Seen by Provider: 01/26/17 13:14 Chief Complaint (Nursing): Shortness Of Breath Chief Complaint (Provider): Groin pain History Per: Patient History/Exam Limitations: clinical condition Onset/Duration Of Symptoms: Hrs (prior to arrival ) Additional Complaint(s): Julio Negrete is an 86 year old male presenting to the ED with complaints of pain to his groin area. The patient is alert & oriented x 0, therefore cannot obtain ROS. Spoke to patients son and states this is patients baseline. He also reports the patient takes medications for Dementia and constipation and he reports the patient has been complaining of rectal pain. PMD: TBD Past Medical History Reviewed: Historical Data, Nursing Documentation, Vital Signs Vital Signs: Last Vital Signs Temp 97.7 F 01/26/17 13:01 Pulse 69 01/26/17 13:01 Resp 18 01/26/17 13:01 BP 110/66 01/26/17 13:01 Pulse Ox 98 01/26/17 13:01 - Medical History PMH: Dementia Denies: Alzheimer's Disease, Anemia, Anxiety, Arthritis, Asthma, Atrial Fibrillation, Bipolar Disorder, Bronchitis, CAD, Cardia Arrhythmia, CHF, COPD, Crohn's Disease, Depression, Diabetes, Diverticulitis, Emphysema, Fractures, Gastritis, Gall Bladder Disease, HIV, HTN, Hypercholesterolemia, Hyperthyroidism , Hypothyroidism, Kidney Stones, Migraine, Mitral Valve Prolapse, Multiple Sclerosis, Osteoporosis, Pancreatitis, Paranoia, Parkinson's Disease, Peripheral Edema, Pneumonia, Post Traumatic Stress Disorder, Pulmonary Embolism , Chronic Kidney Disease, Rheumatoid Arthritis, Schizophrenia, Seizures, Sickle Cell Disease, Sexually Transmitted Disease, Sleep Apnea, TIA - Surgical History Surgical History: Denies: Appendectomy, CABG, Carotid Endarterectomy, Cholecystectomy, Coronary Stent, Pacemaker, Tonsillectomy - Family History Family History: States: Unknown Family Hx - Home Medications Home Medications: Ambulatory Orders Medication Instructions Recorded Memantine [Namenda] 10 mg PO DAILY 12/05/15 Lactulose [Constulose] 10 ml PO TID 08/11/16 Aspirin [Aspirin Chewable] 81 mg PO DAILY 08/12/16 Memantine [Namenda] 10 mg PO DAILY tab 08/12/16 Pantoprazole [Protonix EC Tab] 20 mg PO DAILY ect 08/12/16 - Allergies Allergies/Adverse Reactions: Allergies Allergy/AdvReac Type Severity Reaction Status Date / Time No Known Allergies Allergy Verified 07/23/16 13:29 Review of Systems Review Of Systems: ROS cannot be obtained secondary to pt's inabilty to answer questions. (patient has dementia) Physical Exam - Reviewed Nursing Documentation Reviewed: Yes Vital Signs Reviewed: Yes - Physical Exam Appears: Positive for: Non-toxic, No Acute Distress Head Exam: Positive for: ATRAUMATIC, NORMOCEPHALIC Skin: Positive for: Normal Color, Warm, Dry Eye Exam: Positive for: Normal appearance, EOMI ENT: Positive for: Normal ENT Inspection Neck: Positive for: Normal, Painless ROM, Supple Cardiovascular/Chest: Positive for: Regular Rate, Rhythm, Chest Non Tender Respiratory: Positive for: Normal Breath Sounds. Negative for: Respiratory Distress Gastrointestinal/Abdominal: Positive for: Normal Exam, Soft. Negative for: Tenderness Back: Positive for: Normal Inspection Rectal: Positive for: Normal Exam. Negative for: Tenderness Extremity: Positive for: Normal ROM. Negative for: Deformity Neurologic/Psych: Positive for: Alert, Oriented (x0). Negative for: Motor/ Sensory Deficits - Laboratory Results Result Diagrams: 01/26/17 14:40 01/26/17 14:40 - ECG O2 Sat by Pulse Oximetry: 98 (RA) Pulse Ox Interpretation: Normal Medical Decision Making Medical Decision Making: Time: 13:14 Impression: Groin pain, history of dementia Plan: * ED EKG * CMP * Troponin I * CBC (with differential) * PTT * Prothrombin Time * Glucose, Blood, POC * Urinalysis * CT Head w/o Contrast * [RAD] Chest Portable * Reevaluation Accession No. : [id number] Patient Name / ID : ALYSSA HIGGINBOTHAM / [id number] Exam Date : 01/26/2017 14:24:21 ( Approved ) Study Comment : Sex / Age : M / 86Y Creator : Dejuan Emery MD Dictator : Dejuan Emery MD Digital Designer : Clinical Cytopathologist : Dejuan Emery MD Approver2 : Report Date : 01/27/2017 07:24:30 My Comment : HISTORY: AMS COMPARISON: No prior. FINDINGS: LUNGS: No active pulmonary disease. PLEURA: No significant pleural effusion identified, no pneumothorax apparent. CARDIOVASCULAR: Normal. OSSEOUS STRUCTURES: No significant abnormalities. VISUALIZED UPPER ABDOMEN: Normal. OTHER FINDINGS: None. IMPRESSION: No active disease. Accession No. : [id number] Patient Name / ID : ALYSSA HIGGINBOTHAM / [id number] Exam Date : 01/26/2017 14:32:30 ( Approved ) Study Comment : Sex / Age : M / 86Y Creator : Dejuan Emery MD Dictator : Dejuan Emery MD Digital Designer : Clinical Cytopathologist : Dejuan Emery MD Approver2 : Report Date : 01/26/2017 15:35:08 My Comment : PROCEDURE: CT HEAD WITHOUT CONTRAST. HISTORY: AMS COMPARISON: None available. TECHNIQUE: Axial computed tomography images were obtained through the head/brain without intravenous contrast. Radiation dose: Total exam DLP = 1156 mGy-cm. This CT exam was performed using one or more of the following dose reduction techniques: Automated exposure control, adjustment of the mA and/or kV according to patient size, and/or use of iterative reconstruction technique. FINDINGS: HEMORRHAGE: No intracranial hemorrhage. BRAIN: No mass effect or edema. 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 VENTRICLES: Unremarkable. No hydrocephalus. CALVARIUM: Unremarkable. PARANASAL SINUSES: Unremarkable as visualized. No significant inflammatory changes. MASTOID AIR CELLS: Unremarkable as visualized. No inflammatory changes. OTHER FINDINGS: None. IMPRESSION: No acute hemorrhage. Son at bedside, states patient at baseline mental status and physical health. Scribe Attestation: Documented by Teodora Galaviz, acting as a scribe for Andressa Rivers MD. Provider Scribe Attestation: All medical record entries made by the Scribe were at my direction and personally dictated by me. I have reviewed the chart and agree that the record accurately reflects my personal performance of the history, physical exam, medical decision making, and the department course for this patient. I have also personally directed, reviewed, and agree with the discharge instructions and disposition. Disposition - Clinical Impression Clinical Impression: Dementia - Disposition Referrals: Saulo Arshad MD [Staff Provider] - Disposition: Routine/Home Disposition Time: 18:27 Condition: STABLE Instructions: Dementia (ED) Forms: [employer] (Latvian) Print Language: ESTONIAN
[2017-01-26 14:48] LABS: BASO # 0.1 K/uL (0.0-0.2); BASO % 0.8 % (0.0-2.0); EOS # 1.1 K/uL (0.0-0.7); EOS % 16.9 % (0.0-4.0); LYMPH % 30.8 % (20.0-40.0); MEAN CELL VOLUME 99.8 fl (80.0-94.0); MEAN CORPUSCULAR HEMOGLOBIN 32.5 pg (27.0-31.0); MEAN CORPUSCULAR HGB CONC 32.6 g/dL (33.0-37.0); MEAN PLATELET VOLUME 8.2 fl (7.2-11.7); MONO # 0.3 K/uL (0.0-0.8); MONO % 5.2 % (0.0-10.0); NEUT % 46.3 % (50.0-75.0); RED CELL DISTRIBUTION WIDTH 14.1 % (11.5-14.5); WHITE BLOOD COUNT 6.4 K/uL (4.8-10.8)
[2017-01-26 14:55] LABS: ALB/GLOB RATIO 1.1 (1.0-2.1); ALKALINE PHOSPHATASE 75 U/L (38-126); ALT/SGPT 27 U/L (21-72); AST/SGOT 32 U/L (17-59); BILIRUBIN,TOTAL 0.5 mg/dl (0.2-1.3); BLOOD UREA NITROGEN 26 mg/dl (9-20); CALCIUM 8.9 mg/dL (8.4-10.2); CARBON DIOXIDE 30 mmol/L (22-30); CHLORIDE 106 mmol/L (98-107); GFR AFRICAN-AMERICAN > 60; GLUCOSE,RANDOM 90 mg/dL (75-110); POTASSIUM 3.9 MMOL/L (3.6-5.0); SODIUM 143 mmol/l (132-148)
[2017-01-26 14:57] LABS: PARTIAL THROMBOPLASTIN TIME 36.3 Seconds (25.6-37.1)
--- NOTE | 2017-01-26 15:36 | CT ---
PROCEDURE: CT HEAD WITHOUT CONTRAST. HISTORY: AMS COMPARISON: None available. TECHNIQUE: Axial computed tomography images were obtained through the head/brain without intravenous contrast. Radiation dose: Total exam DLP = 1156 mGy-cm. This CT exam was performed using one or more of the following dose reduction techniques: Automated exposure control, adjustment of the mA and/or kV according to patient size, and/or use of iterative reconstruction technique. FINDINGS: HEMORRHAGE: No intracranial hemorrhage. BRAIN: No mass effect or edema. 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 VENTRICLES: Unremarkable. No hydrocephalus. CALVARIUM: Unremarkable. PARANASAL SINUSES: Unremarkable as visualized. No significant inflammatory changes. MASTOID AIR CELLS: Unremarkable as visualized. No inflammatory changes. OTHER FINDINGS: None. IMPRESSION: No acute hemorrhage.
[2017-01-26] MEDS ORDERED: Sodium Chloride 0.9% 500 ML IV STA (17:00)
[2017-01-26 18:56] LABS: RBC URINE 1 /hpf (0-3); URINE BILIRUBIN NEGATIVE (NEGATIVE); URINE BLOOD NEGATIVE (NEGATIVE); URINE COLOR YELLOW (YELLOW); URINE GLUCOSE (UA) NEG (Normal); URINE KETONE NEGATIVE (NEGATIVE); URINE LEUKOCYTE ESTERASE NEG Leu/uL (Negative); URINE PROTEIN 30 mg/dL (NEGATIVE); URINE UROBILINOGEN 0.2-1.0 mg/dL (0.2-1.0); WBC URINE 1 /hpf (0-5)
--- NOTE | 2017-01-27 07:25 | RAD ---
HISTORY: AMS COMPARISON: No prior. FINDINGS: LUNGS: No active pulmonary disease. PLEURA: No significant pleural effusion identified, no pneumothorax apparent. CARDIOVASCULAR: Normal. OSSEOUS STRUCTURES: No significant abnormalities. VISUALIZED UPPER ABDOMEN: Normal. OTHER FINDINGS: None. IMPRESSION: No active disease.
[2017-01-27 08:34] VITALS: BP 124/79; PULSE 75; RESP 14; TEMP 97.9; O2SAT 98
--- NOTE | 2017-01-27 14:20 | CARD ---
APPROVED REPORT EKG Measurement Heart [id number] <Conclusion> Normal sinus rhythm Possible Left atrial enlargement Nonspecific ST abnormality Abnormal ECG
== END 2017-01-26 19:30 | disposition home or self-care (01) ==
LOC: H.ER 12:50 → SUPCPDRO 12:50 → H.ER 19:30
DX: F03.90 Unspecified dementia, unspecified severity, without behavioral disturbance, psychotic disturbance, mood disturbance, and anxiety (principal)
CPT/HCPCS: 70450; 71010; 80053; 81003; 85025; 85610; 85730; 93005; 99284; J7040

== ENCOUNTER 2017-02-24 10:58 | Emergency (ER) | payer MEDICARE ==
[2017-02-24 11:02] VITALS: BMI 24.6
--- NOTE | 2017-02-24 11:56 | ED PDOC ---
HPI: General Adult Time Seen by Provider: 02/24/17 11:13 Chief Complaint (Nursing): Altered Mental Status Chief Complaint (Provider): Dementia History Per: Patient, EMS, Family History/Exam Limitations: no limitations Onset/Duration Of Symptoms: Mins Have you had recent travel within the past 21 days to any of the following countries: [place], [place], [place] or [place]?: No Additional History Per: Patient Additional Complaint(s): 86yo male with history of dementia, brought in by EMS for evaluation after patient was found walking outside in the streets of [place]. patient was asking for directions and he states episodes like this happen to his due to his history of dementia. Patient's son is present at bedside who states the patient has days when he forgets what he is doing; reports today the patient left home to get a haircut and was asking for directions to the place. Patient has no medical complaints at present and denies any history of changes in mental status or memory. PCP: Dr. Arshad Neurologist: Dr. Banks Past Medical History Reviewed: Historical Data, Nursing Documentation, Vital Signs Vital Signs: Last Vital Signs Temp 97 F L 02/24/17 12:14 Pulse 78 02/24/17 12:14 Resp 17 02/24/17 12:14 BP 120/78 02/24/17 12:14 Pulse Ox 98 02/24/17 12:14 - Medical History PMH: Dementia Denies: Alzheimer's Disease, Anemia, Anxiety, Arthritis, Asthma, Atrial Fibrillation, Bipolar Disorder, Bronchitis, CAD, Cardia Arrhythmia, CHF, COPD, Crohn's Disease, Depression, Diabetes, Diverticulitis, Emphysema, Fractures, Gastritis, Gall Bladder Disease, HIV, HTN, Hypercholesterolemia, Hyperthyroidism , Hypothyroidism, Kidney Stones, Migraine, Mitral Valve Prolapse, Multiple Sclerosis, Osteoporosis, Pancreatitis, Paranoia, Parkinson's Disease, Peripheral Edema, Pneumonia, Post Traumatic Stress Disorder, Pulmonary Embolism , Chronic Kidney Disease, Rheumatoid Arthritis, Schizophrenia, Seizures, Sickle Cell Disease, Sexually Transmitted Disease, Sleep Apnea, TIA - Surgical History Surgical History: Denies: Appendectomy, CABG, Carotid Endarterectomy, Cholecystectomy, Coronary Stent, Pacemaker, Tonsillectomy - Family History Family History: States: Unknown Family Hx - Living Arrangements Living Arrangements: With Family - Home Medications Home Medications: Ambulatory Orders Medication Instructions Recorded Lactulose [Constulose] 10 ml PO DAILY PRN 08/11/16 Memantine [Namenda] 10 mg PO DAILY tab 08/12/16 - Allergies Allergies/Adverse Reactions: Allergies Allergy/AdvReac Type Severity Reaction Status Date / Time No Known Allergies Allergy Verified 07/23/16 13:29 Review of Systems ROS Statement: Except As Marked, All Systems Reviewed And Found Negative Physical Exam - Reviewed Nursing Documentation Reviewed: Yes Vital Signs Reviewed: Yes - Physical Exam Appears: Positive for: Non-toxic, No Acute Distress Head Exam: Positive for: ATRAUMATIC, NORMAL INSPECTION, NORMOCEPHALIC Skin: Positive for: Normal Color Eye Exam: Positive for: Normal appearance Neck: Positive for: Supple Cardiovascular/Chest: Positive for: Regular Rate, Rhythm Respiratory: Positive for: Normal Breath Sounds Neurologic/Psych: Positive for: Alert, Oriented. Negative for: Motor/Sensory Deficits - ECG O2 Sat by Pulse Oximetry: 100 (RA) Pulse Ox Interpretation: Normal Medical Decision Making Medical Decision Making: Impression: Dementia, adult well check Plan: -- Patient with no acute medical condition at this time and there is no indication for further testing, monitoring or consultation. Patient is stable for discharge home. Scribe Attestation: Documented by Alicia Lane acting as a scribe for Joana Mendoza MD. Provider Attestation: All medical record entries made by the Scribe were at my direction and personally dictated by me. I have reviewed the chart and agree that the record accurately reflects my personal performance of the history, physical exam, medical decision making, and the department course for this patient. I have also personally directed, reviewed, and agree with the discharge instructions and disposition. Disposition - Clinical Impression Clinical Impression: Dementia - Patient ED Disposition Is Patient to be Admitted: No Doctor Will See Patient In The: Office Counseled Patient/Family Regarding: Studies Performed, Diagnosis, Need For Followup - Disposition Referrals: Saulo Arshad MD [Staff Provider] - Disposition: Routine/Home Disposition Time: 12:03 Condition: GOOD Additional Instructions: Follow up with your PCP in 3 days. Instructions: Dementia (ED)
[2017-02-24 12:15] VITALS: BP 120/78; PULSE 78; RESP 17; TEMP 97
[2017-02-24 12:16] VITALS: O2SAT 100
== END 2017-02-24 12:15 | disposition home or self-care (01) ==
LOC: H.ER 10:58
DX: F03.90 Unspecified dementia, unspecified severity, without behavioral disturbance, psychotic disturbance, mood disturbance, and anxiety (principal)